=== PATIENT | male | born 1975 | race Caucasian/White ===

== ENCOUNTER 2025-02-09 00:56 | Day surgery (SDC) | payer BC, SELFPAY ==
[2025-01-22 14:22] VITALS: BMI 30.9
[2025-02-09 08:34] VITALS: BP 134/103; PULSE 118; RESP 20; TEMP 36.3; O2SAT 97; BMI 31.6
[2025-02-09] MEDS: LACTATED RINGERS 1,000 ML 150 ML IV CONT (08:53)
--- NOTE | 2025-02-09 09:23 | WPDANESEPPF ---
Anes - Initial Pre Proc Eval Procedure: Operation Date: 02/09/25 10:00 Proposed Procedures p Screening Colonoscopy - Earnest Alex DO Date/Time: 02/09/25 09:23 Surgeon: Earnest Alex DO Pre Op Diagnosis: Neoplasm screening Patient Data Age: 49 Gender: M Height: 1.75 m Weight: 97.1 kg Last Vital Signs Temp 36.3 C L 02/09/25 08:34 Pulse 118 H 02/09/25 08:34 Resp 20 02/09/25 08:34 BP 134/103 H 02/09/25 08:34 Pulse Ox 97 02/09/25 08:34 O2 Del Method Room Air 02/09/25 08:34 Allergies Allergy/AdvReac Type Severity Reaction Status Date / Time No Known Allergies Allergy Verified 02/09/25 08:40 Home Medications ?Medication ?Instructions ?Recorded ?Confirmed ?Type valsartan 320 See Rx Instructions .Route 07/18/24 02/09/25 Rx mg-hydrochlorothiazide 12.5 mg .COMPLEX #90 tabs tablet Patient hx anesthesia problems: none Family hx anesthesia problems: none Results Review: All pre-operative results and documents have been reviewed as part of the pre-operative evaluation. [facility] Family History Family History Grandparent Cerebrovascular accident Family history of malignant neoplasm Family history of coronary artery disease Father No problems noted. Mother No problems noted. Sibling No problems noted. 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 identity (if verbalized by the patient): Male Spiritual care concerns: No Anes - Eval Final PreProcedure Day of Procedure 02/09/25 09:23 Patient weight: obese Heart: regular rate and rhythm Lungs: clear to auscultation Airway: Mallampati scale class II Neurological: alert and oriented Last oral intake: >/= 8 hours ASA classification: II Emergent: no Anesthetic plan: proceed Anesthesia type and monitoring: general GIVS and standard monitoring Results Review: All pre-operative results and documents have been reviewed as part of the pre-operative evaluation. Informed Consent: The patient's anesthetic plan and its attendant risks and benefits were discussed with the patient/family/POA. Questions were solicited and answers provided to the satisfaction of the patient/family/POA.
--- NOTE | 2025-02-09 09:24 | P.HP_ITS ---
H&P: HPI History of Present Illness Date/Time: 02/09/25 09:24 Chief Complaint: Screening for colorectal cancer Narrative: This is a 49-year-old man who presents for his 1st colonoscopy. He denies any hematochezia or melena. He denies any first-degree relatives with history of colon cancer. Review of Systems Review of Systems: All systems reviewed & are unremarkable except as noted in HPI and below Constitutional: Constitutional: Denies chills, Denies fever(s), Denies heada yo(s) and Denies weight loss Eyes: Eyes: Denies change in vision ENT: Denies dizziness, Denies headache(s), Denies neck mass and Denies throat swelling Cardiovascular: Cardiovascular: Denies chest pain, Denies lightheadedness and Denies dyspnea Respiratory: Respiratory: Denies cough, Denies dyspnea and Denies wheezing Gastrointestinal: Gastrointestinal: Denies abdominal pain, Denies change in bowel habits, Denies nausea and Denies vomiting Genitourinary: Genitourinary: Denies hematuria and Denies dysuria Musculoskeletal: Musculoskeletal: Reports as per HPI Integumentary/Breasts: Skin/Breast: Reports as per HPI Neurologic: Denies dizziness and Denies headache(s) Allergic/Immunologic: Allergic/Immunologic: Denies throat swelling and Denies wheezing PMFSH Family History Family History Grandparent Cerebrovascular accident Family history of malignant neoplasm Family history of coronary artery disease Father No problems noted. Mother No problems noted. Sibling No problems noted. 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 identity (if verbalized by the patient): Male Spiritual care concerns: No Meds Home Medications and Allergies Home Medications ?Medication ?Instructions ?Recorded ?Confirmed ?Type valsartan 320 See Rx Instructions .Route 0 07/18/24 02/09/25 Rx mg-hydrochlorothiazide 12.5 mg .COMPLEX #90 tabs tablet Allergies Allergy/AdvReac Type Severity Reaction Status Date / Time No Known Allergies Allergy Verified 02/09/25 08:40 Vital Signs Vital Signs - 24 hr 02/09/25 08:34 Temperature 97.4 F L Pulse Rate 118 H Respiratory Rate 20 Blood Pressure 134/103 H Pulse Oximetry 97 Oxygen Delivery Room Air Exam Const: General: no acute distress and alert Orientation/consciousness: patient oriented x3 HENMT: Head: normocephalic and atraumatic Ears: hearing grossly normal bilaterally Face/Nose/Sinus: Normal nares present Mouth: Yes Normal oral and palatal mucosa present Eyes: Periorbital: periorbital findings normal Sclera: sclerae normal EOM: EOMs intact bilaterally Neck: Neck: normal visual inspection, no lymphadenopathy and trachea midline Chest: Chest palpation & inspection: normal inspection of the chest Resp: Effort & Inspection: normal respiratory effort Auscultation: clear to auscultation bilaterally Cardio: Jugular venous distension: no JVD Rate: regular rate Rhythm: regular rhythm Heart sounds: S1 normal heart sound present and S2 normal heart sound present Peripheral pulses: Peripheral pulses 2+ throughout GI: Inspection: normal to inspection GI Palp: Yes Soft to palpation, No Tenderness to palpation present (GI), No Guarding due to palpation present (GI) and No Rebound tenderness present Percussion: Yes normal to percussion Auscultation: normal bowel sounds : General: Yes no CVA tenderness Back/Spine/Pelvis: Back: no CVA tenderness Neuro: General: patient oriented x3, no focal motor deficits and CN's II-XI intact bilaterally Cognition (Neuro): normal cognition Speech: normal speech Motor exam (neuro): 5/5 motor strength present throughout Extrem: General: capillary refill normal and no clubbing, cyanosis or edema Assessment and Plan Assessment and plan (1) Encounter for screening colonoscopy: Code(s): Z12.11 - Encounter for screening for malignant neoplasm of colon Status: Acute Assessment and Plan: I have recommended colonoscopy. I have discussed the procedure, risks, benefits, and alternatives. Questions were answered. Patient is agreeable to proceed.
--- NOTE | 2025-02-09 09:47 | S_PTH ---
PATIENT: Ismael Underwood LOC: [facility] U#:[id number] AGE/SX: 49/M ROOM: RE02/09/[address]: Earnest Alex DO : 1975 BED: DIS: 02/09/2025 SPEC #: [id number] RECD: 02/09/25 10:12 STATUS: HAVEN REArchie #: [id number] GENE: 02/09/25 09:[address]: Earnest Alex DEPT: [facility] Surgical RECD BY: Carrol Avila ENTERED: 02/09/25 10:13 SP TYPE: Surgical OTHR DR: Berto Houser APRN Tissues: A - Colon Polypectomy B - Colon Polypectomy Procedures: Hematoxylin and Eosin Stain Gross and Microscopic Level 4
[2025-02-09 09:49] VITALS: BP 132/97; PULSE 88; RESP 17; O2SAT 100
[2025-02-09 09:59] VITALS: BP 133/104; PULSE 91; RESP 20; O2SAT 100
[2025-02-09 10:09] VITALS: BP 146/117; PULSE 77; RESP 23; O2SAT 100
== END 2025-02-09 10:22 | disposition home or self-care (01) ==
PROVIDERS: PCP Nurse Practitioner; Visit Provider Surgery
PROC: 0DJD8ZZ Inspection of Lower Intestinal Tract, Via Natural or Artificial Opening Endoscopic (ICD-10-PCS; CPT 45378; principal; 2025-02-09 10:00)
DX: Z12.11 Encounter for screening for malignant neoplasm of colon (principal); D12.5 Benign neoplasm of sigmoid colon; K62.1 Rectal polyp; F12.90 Cannabis use, unspecified, uncomplicated; E66.9 Obesity, unspecified; Z68.31 Body mass index [BMI] 31.0-31.9, adult
CPT/HCPCS: 45380; 45385; 88305; J2704; J7120